=== PATIENT | male | born 1950 | race Caucasian/White ===

== ENCOUNTER 2016-09-10 12:55 | Outpatient (CLI) | payer BC, MEDICARE ==
--- NOTE | 2016-09-10 22:20 | Ultrasound Report ---
EXAM: ABDOMEN ULTRASOUND LIMITED, RUQ EXAM DATE: 09/10/2016 01:35 PM. CLINICAL HISTORY: Abdominal pain, right upper quadrant. COMPARISON: None. TECHNIQUE: Real-time scanning was performed with static images obtained. FINDINGS: Liver: Liver parenchyma is heterogeneous and markedly hyperechoic. No discrete liver masses or intrah epatic bile duct dilation. However, evaluation for masses is limited secondary to the echogenicity. 17.4 cm. Main portal vein flow: Hepatopetal. Gallbladder: Normal. No stones, wall thickening, or sonographic Ramires's sign. Biliary System: CBD measures 7.1 mm. No intrahepatic or extrahepatic ductal dilatation. Right kidney: Length measures 11.9 cm. No hydronephrosis. Other: None. IMPRESSION: 1. Enlarged fatty liver. No mass. 2. Normal gallbladder and common bile duct. [facility] Referring Provider Line: [phone] SITE ID: [id number]
== END 2016-09-10 12:56 | disposition home or self-care (01) ==
LOC: DI 12:55
PROVIDERS: ATTEND Family Medicine
DX: K76.0 Fatty (change of) liver, not elsewhere classified (principal)
CPT/HCPCS: 76705

== ENCOUNTER 2017-07-21 18:23 | Emergency (ER) | payer BC, MEDICARE ==
[2017-07-21 18:51] VITALS: BP 154/93
[2017-07-21] MEDS ORDERED: HYDROcod/ACET 5/325 Prepack 4 PO STA (20:01)
--- NOTE | 2017-07-21 20:03 | ED Physician Documentation ---
PD HPI LOWER EXT INJURY - Stated complaint Stated Complaint: BACK PX,RT KNEE PX - Chief complaint Chief Complaint: Ext Problem - History obtained from History obtained from: Patient - History of Present Illness PD HPI LOW EXT INJURY LOCATION: Other (He went for a walk a little under week ago and that night developed some right thoracic back pain was much worse with bending or lifting. He went to his doctor was prescribed a muscle relaxer, that is now much better but starting 2 nights ago he developed atraumatic right knee pain and popping which is at times severe without specific trauma, swelling , fevers.) Review of Systems Constitutional: denies: Fever, Chills Cardiac: denies: Chest pain / pressure, Palpitations Respiratory: denies: Dyspnea, Cough PD PAST MEDICAL HISTORY - Past Medical History Past Medical History: Yes Cardiovascular: Hypertension, High cholesterol Respiratory: Sleep apnea Neuro: Alzhiemer's Endocrine/Autoimmune: HyPOthyroidism GI: None : None HEENT: None Psych: None Musculoskeletal: Osteoporosis Derm: None - Past Surgical History Past Surgical History: Yes Ortho: Arthroscopic surgery HEENT: Tonsil/Adenoidectomy - Present Medications Home Medications: Ambulatory Orders Medication Instructions Recorded Confirmed Baclofen 10 mg PO TID 07/21/17 07/21/17 HYDROcod/ACETAM 5/325 [[place] 5/325] 1 - 2 ea PO Q6H PRN #10 tablet 07/21/17 Ibuprofen 2 cap PO Q6HR PRN 07/21/17 07/21/17 Levothyroxine [Synthroid] 1 tab PO DAILY 07/21/17 07/21/17 Simvastatin 1 tab PO DAILY 07/21/17 07/21/17 - Allergies Allergies/Adverse Reactions: Allergies Allergy/AdvReac Type Severity Reaction Status Date / Time No Known Drug Allergies Allergy Verified 07/21/17 18:50 - Social History Does the pt smoke?: No Smoking Status: Never smoker Does the pt drink ETOH?: Yes Does the pt have substance abuse?: No - Immunizations Immunizations are current?: Yes - POLST Patient has POLST: No PD ED PE NORMAL - Vitals Vital signs reviewed: Yes - General General: Alert and oriented X 3, No acute distress - Cardiac Cardiac: RRR, No murmur - Respiratory Respiratory: No respiratory distress, Clear bilaterally - Abdomen Abdomen: Non tender - Back Back: No spinal TTP - Derm Derm: Normal color, Warm and dry - Extremities Extremities: Other (Right knee is nontender without an effusion, there is no warmth or redness and he is ranging it painlessly.) - Neuro Neuro: Alert and oriented X 3, Normal speech - Psych Psych: Normal mood, Normal affect Results - Vitals Vitals: Vital Signs - 24 hr 07/21/17 18:42 Temperature 36.8 C Heart Rate 77 Respiratory 16 Rate Blood Pressure 154/93 H O2 Saturation 96 Oxygen O2 Source Room air - Rads (name of study) R Knee Radiology: EMP read contemporaneously (Chondrocalcinosis and small osteophytes) PD MEDICAL DECISION MAKING - ED course ED course: 67-year-old gentleman with bad knee pain, better now, there is no evidence of infection or warmth or effusion on examination. He does have evidence of osteophytes and calcific foreign bodies in the joint. He was administered for Vicodin to go here and he will follow-up with his doctor on Monday. Departure - Departure Disposition: Home, Self Care Clinical Impression: Osteophyte determined by x-ray Condition: Good Record reviewed to determine appropriate education?: Yes Instructions: Knee Osteoarthritis Follow-Up: Michelle Singh MD [Primary Care Provider] - 07/24/17 Prescriptions: HYDROcod/ACETAM 5/325 [[place] 5/325] 1 - 2 ea PO Q6H PRN #10 tablet PRN Reason: Pain Comments: Call your doctor to arrange a follow-up appointment, make the next available appointment. In the interim, return anytime if worse or if new symptoms develop. Your blood pressure was elevated today on check into the emergency department. This does not mean that you have hypertension, it is a common phenomenon to come to the emergency department and have elevated blood pressure. I recommend that you see your primary care physician within the week to have it rechecked when you are feeling better.
--- NOTE | 2017-07-21 20:52 | XRAY Report ---
EXAM: RIGHT KNEE RADIOGRAPHY EXAM DATE: 07/21/2017 08:39 PM. CLINICAL HISTORY: Knee pain. COMPARISON: None. TECHNIQUE: 4 views. FINDINGS: Bones: No fracture or focal bony lesion. Joints: No evidence of dislocation. Joint spacing is maintained. There are patellofemoral compartmen t marginal osteophytes. There is no chondrocalcinosis. Soft Tissues: No unexpected soft tissue findings. IMPRESSION: 1. No evidence of fracture or dislocation. 2. No joint effusion. 3. There is chondrocalcinosis. 4. There are small patellofemoral compartment marginal osteophytes. [facility] Referring Provider Line: [phone] SITE ID: [id number]
== END 2017-07-21 21:03 | disposition home or self-care (01) ==
LOC: ED 18:23
DX: M25.761 Osteophyte, right knee (principal); M11.261 Other chondrocalcinosis, right knee; G30.9 Alzheimer's disease, unspecified; F02.80 Dementia in other diseases classified elsewhere, unspecified severity, without behavioral disturbance, psychotic disturbance, mood disturbance, and anxiety; I10 Essential (primary) hypertension; E78.00 Pure hypercholesterolemia, unspecified; E03.9 Hypothyroidism, unspecified
CPT/HCPCS: 99283

== ENCOUNTER 2018-01-18 09:56 | Outpatient (CLI) | payer BC, MEDICARE ==
--- NOTE | 2018-01-18 14:04 | MRI Report ---
Reason: BUCKET HANDLE TEAR OF LATERAL MENISCUS Procedure Date: 01/18/2018 Accession Number: [id number] / [id number] Procedure: MRI - Knee RT W/O CPT Code: FULL RESULT: EXAM: RIGHT KNEE MRI WITHOUT CONTRAST EXAM DATE: 01/18/2018 10:41 AM. CLINICAL HISTORY: BUCKET HANDLE TEAR OF LATERAL MENISCUS. COMPARISON: KNEE 4 VIEW RT 07/21/2017 8:20 PM. TECHNIQUE: Multiplanar, multisequence T1-weighted and fluid-sensitive sequences of the knee without contrast. Other: None. FINDINGS: Bones: There are small medial compartment osteophytes. Articular Cartilage: There is mild thinning of the hyaline cartilage of the medial and patellofemoral compartments. There is minimal surface erosion of the lateral compartment cartilage. Medial Meniscus: There is a radial tear of the body of the medial meniscus with minimal extrusion. Lateral Meniscus: The lateral meniscus is intact. Cruciate Ligaments: The anterior and posterior cruciate ligaments are intact. Collateral Ligaments: The medial collateral and lateral collateral ligamentous structures are intact. Tendons: The patellar tendon is thickened, suggesting prior tendinosis or partial thickness tear. There is a focus of ossification in its proximal attachment. Popliteus tendon appears normal. Musculature: No edema or fatty atrophy. Other: There is a small joint effusion. No popliteal cyst. No loose bodies. The medial and lateral retinacula are intact. Mild subcutaneous edema. IMPRESSION: 1. Radial tear of the medial meniscus with minimal extrusion. Small joint effusion. 2. Mild tricompartmental osteoarthritis. 3. Thickening of the patella tendon which may indicate prior tendinosis or partial thickness tear. [facility] MUSCULOSKELET[facility]IOLOGY SECTION
== END 2018-01-18 09:57 | disposition home or self-care (01) ==
LOC: DI 09:56
PROVIDERS: ATTEND Orthopaedic Surgery
DX: M23.203 Derangement of unspecified medial meniscus due to old tear or injury, right knee (principal); M17.11 Unilateral primary osteoarthritis, right knee

== ENCOUNTER 2018-02-23 09:09 | Outpatient (CLI) | payer BC, MEDICARE ==
--- NOTE | 2018-02-23 12:45 | MRI Report ---
Reason: NONTRAUMATIC RUPTURE OF TIBIALIS POSTERIOR TENDON Procedure Date: 02/23/2018 Accession Number: [id number] / [id number] Procedure: MRI - Foot RT W/O CPT Code: FULL RESULT: EXAM: RIGHT ANKLE/HINDFOOT MRI WITHOUT CONTRAST EXAM DATE: 02/23/2018 10:15 AM. CLINICAL HISTORY: Nontraumatic rupture of tibialis posterior tendon. COMPARISON: FOOT 3 VIEW RT 02/08/2018 10:01 AM. TECHNIQUE: Multiplanar, multisequence T1-weighted and fluid-sensitive sequences of the ankle/hindfoot without contrast. Other: None. FINDINGS: Bones: There is thinning of the hyaline cartilage of the talonavicular joint with subchondral edema, cyst formation and osteophyte formation consistent with moderate osteoarthritis. There is subchondral edema and sclerosis in the posterior process of the talus at the posterior subtalar joint. There is subchondral sclerosis of the adjacent calcaneum as well. The findings are consistent with osteoarthritis, possibly secondary to prior trauma. Articular Cartilage: See above. Ligaments: The tibiofibular ligaments are intact. There is an acute grade 3 tear of the anterior talofibular ligament, the torn ligament fibers are visible anterior to the talus. There is an old partial-thickness tear of the calcaneofibular and posterior talofibular ligaments. There is a high-grade partial-thickness tear of the spring ligament. The remainder of the deltoid ligament appears thinned, suggesting a prior partial-thickness tear. Anterior Tendons: The tibialis anterior, extensor hallucis longus, and extensor digitorum longus tendons are unremarkable. Medial Tendons: There is thickening and increased T2 signal within the tibialis posterior consistent with tendinosis and a partial-thickness tear immediately adjacent to its navicular insertion. The remaining medial tendons appear unremarkable. Lateral Tendons: The peroneal tendons appear unremarkable. Achilles Tendon: The Achilles tendon appears slightly thickened throughout its visible length, without significant alteration in signal. The findings may indicate low-grade Achilles tendinosis. Musculature: No edema or fatty atrophy. Other: Small ankle joint effusion. The contents of the sinus tarsi and tarsal tunnel are unremarkable. No plantar fasciitis. There is subcutaneous edema surrounding the ankle. IMPRESSION: 1. Acute grade 3 tear of the anterior talofibular ligament. 2. Prior partial-thickness tears of the spring, deltoid ligament, calcaneofibular and posterior talofibular ligaments. 3. Moderate osteoarthritis of the posterior subtalar joint and the talonavicular joint with joint effusions, which may indicate prior trauma. 4. Tibialis posterior tendinosis and partial-thickness tear adjacent to its navicular insertion. 5. Possible low-grade Achilles tendinosis. [facility] MUSCULOSKELETAL RADIOLOGY SECTION
== END 2018-02-23 09:10 | disposition home or self-care (01) ==
LOC: DI 09:09
PROVIDERS: ATTEND Orthopaedic Surgery
DX: S93.491A Sprain of other ligament of right ankle, initial encounter (principal); M19.071 Primary osteoarthritis, right ankle and foot; M66.861 Spontaneous rupture of other tendons, right lower leg; S93.411D Sprain of calcaneofibular ligament of right ankle, subsequent encounter; S93.491D Sprain of other ligament of right ankle, subsequent encounter

== ENCOUNTER 2018-04-04 10:49 | Outpatient (CLI) | payer BC, MEDICARE ==
[2018-04-04 11:32] LABS: CALCIUM 9.1 mg/dL (8.5-10.3); CREATININE 0.9 mg/dL (0.6-1.2)
[2018-04-04] MEDS ORDERED: IOVERSOL 320 100 ML VIAL IVP ONE ×2 (11:48→12:16)
--- NOTE | 2018-04-04 17:00 | CT Report ---
Reason: GROSS HEMATURIA Procedure Date: 04/04/2018 Accession Number: [id number] / [id number] Procedure: CT - IVP CPT Code: FULL RESULT: EXAM: CT ABDOMEN AND PELVIS WITHOUT AND WITH CONTRAST (CT IVP) EXAM DATE: 04/04/2018 12:32 PM. CLINICAL HISTORY: Gross hematuria. COMPARISONS: None. TECHNIQUE: Routine helical imaging was performed through the kidneys, ureters and bladder in the precontrast, postcontrast and delayed phase. IV Contrast: [id number] 100mL. Reconstructions: Coronal and sagittal. In accordance with CT protocol optimization, one or more of the following dose reduction techniques were utilized for this exam: automated exposure control, adjustment of mA and/or KV based on patient size, or use of iterative reconstructive technique. FINDINGS: Lung Bases: Unremarkable. Right Kidney/Ureter: No stones, hydronephrosis, or masses. Right ureter is patent and normally opacifies with contrast. Left Kidney/Ureter: No stones, hydronephrosis, or masses. Left ureter is patent and normally opacifies with contrast. Other Solid Organs: The liver is hypodense consistent with steatosis. The hepatic and portal veins are normally patent. The spleen, pancreas, gallbladder, and adrenal glands are unremarkable.The bile ducts are unremarkable. Peritoneal Cavity/Bowel: Normal. No free fluid, free air or adenopathy. No masses. Bowel loops are unremarkable. Pelvic Organs: No bladder stones, obstruction or masses. The visualized pelvic organs are unremarkable. Vasculature: Normal. Bones: Normal. Other: None. IMPRESSION: Normal CT IVP; etiology for gross hematuria not identified on this exam. No urinary tract masses, stones or obstruction. [facility]
== END 2018-04-04 10:50 | disposition home or self-care (01) ==
LOC: DI 10:49
PROVIDERS: ATTEND Family Medicine
DX: R31.0 Gross hematuria (principal)
CPT/HCPCS: 36415; 74178; 80048; Q9967